=== PATIENT | male | born 1960 | race African-American/Black ===

== ENCOUNTER 2021-01-29 17:21 | Emergency (ER) | payer OTHER ==
[~2021-01-29] VITALS: Ht 180.3 cm; Wt 90.0 kg
[2021-01-29] MEDS ORDERED: LIDOCAINE 2%/EPI 1:100,000 20 ML VIAL. IJ ONE (17:45)
--- NOTE | 2021-01-29 18:01 | RAD ---
Exam: CT head and face INDICATION: Face head trauma TECHNIQUE: Sequential axial images through the head and face were obtained without the administration of IV contrast. Exposure: One or more of the following in the visualized dose reduction techniques were utilized for this examination: 1. Automated exposure control 2. Adjustment of the MA and/or KV according to patient size 3. Use of iterative of reconstructive technique Comparisons: None FINDINGS: Head: No focal parenchymal lesion or hemorrhage is identified. There is no midline shift or sulcal effaceme nt. No acute vascular territory infarction is identified. Fowler-white distinction is preserved. The ventricular system is within normal limits without compression hydrocephalus. The basal cisterns are well maintained. Face: The visualized portions of the paranasal sinuses and mastoid air cells are well-pneumatized. No acute fractures. Globes and intraorbital contents are normal. Extrarenal soft tissue scalp contusion overl michelle the left frontal region IMPRESSION: 1. Mild extra cranial skull soft tissue scalp contusion overlying the left frontal region without un derlying osseous abnormality. 2. No acute intracranial abnormality Electronically signed by: Liza Velasco MD (01/29/2021 5:59 PM) [facility]
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
[2021-01-29] MEDS ORDERED: KETOROLAC 15 MG/ML VIAL. IM ONE (18:15)
[2021-01-29] MEDS ORDERED: DIPH,PERTUSS(ACELL),TET VAC/PF 0.5 ML SYRINGE. VAX IM ONE (19:30)
[2021-01-29] MEDS ORDERED: BACITRACIN ZINC TOPICAL OINT PACKET. TP ONE ×2 (20:00→20:15)
[2021-01-29 20:15] VITALS: BP 147/101
== END 2021-01-29 20:15 | disposition home or self-care (01) ==
LOC: EEVIPCON 17:21 → ER 17:21
DX: S01.01XA Laceration without foreign body of scalp, initial encounter (principal); S01.81XA Laceration without foreign body of other part of head, initial encounter; S01.112A Laceration without foreign body of left eyelid and periocular area, initial encounter; G89.29 Other chronic pain; Y00.XXXA Assault by blunt object, initial encounter; Y93.01 Activity, walking, marching and hiking; Y92.89 Other specified places as the place of occurrence of the external cause; Y99.8 Other external cause status
CPT/HCPCS: 12002; 12014; 70450; 70486; 90471; 90715; 96372; 99285; J1885

== ENCOUNTER → 2021-01-31 | Outpatient (CLI) | payer OTHER ==
[2021-01-29 20:15] VITALS: BP 147/101
--- NOTE | 2021-01-31 12:47 | RAD ---
US DPLX VENOUS EXTREMITY LOWER RT History: Reason: RT LE EDEMA / Spl. Instructions: / History: Comparison: None. Technique: Multiple longitudinal and transverse high resolution real-time images of the venous system of right lower extremity were obtained with color and Doppler sampling. Findings: Deep vein thrombosis throughout the right lower extremity involving the superficial femoral, poplitea l, posterior tibial and peroneal veins. Impression: 1. Deep vein thrombosis throughout the right lower extremity. Attempts were made to contact the ordering physician Dr. Carney at several locations without success. The patient was reportedly recently placed on anticoagulants. Electronically signed by: Federico Martinez DO (01/31/2021 12:45 PM) [id number]
== END ==
LOC: US 12:02
PROVIDERS: ATTEND Emergency Medicine
DX: I82.4Z1 Acute embolism and thrombosis of unspecified deep veins of right distal lower extremity (principal); R60.0 Localized edema
CPT/HCPCS: 93971